=== PATIENT | female | born 1950 | race Caucasian/White ===

== ENCOUNTER 2017-10-05 07:56 | Day surgery (SDC) | payer MEDICARE, BC ==
[~2017-10-05 07:56] MED LIST: RINGER'S SOLUTION,LACTATED 1,000 ML IV PRN
[2017-10-05] MEDS ORDERED: RINGER'S SOLUTION,LACTATED 1,000 ML IV ONE (08:42)
[2017-10-05] MEDS ORDERED: RINGER'S SOLUTION,LACTATED 1,000 ML IV PRN (09:42)
[2017-10-05 10:52] VITALS: BP 124/61
--- NOTE | 2017-10-05 15:09 | OR ---
Operative Report - Dictated Report Narrative: OPERATIVE REPORT DATE OF OPERATION: 10/05/2017 PREOPERATIVE DIAGNOSIS: No recent dedicated colon studies POSTOPERATIVE DIAGNOSIS: Diverticulosis OPERATION: Colonoscopy SURGEON: Nathalie Ragsdale MD ANESTHESIA: CAMILLE Law CRNA INDICATIONS FOR PROCEDURE: The patient is a 67-year-old female referred by A Thad HORVATH. The patient had a normal colonoscopy in 2006. She has had increasing constipation FINDINGS: Diverticulosis NARRATIVE OF PROCEDURE: The patient was identified in the holding area, and prior to the administration of anesthetic, a multidisciplinary timeout was observed. With the patient in the left lateral position and after the administration of intravenous sedation, the perineum was inspected. There was no evidence of pilonidal disease or skin breakdown. The external appearance of the anus was normal. Sphincter tone was good. The flexible fiberoptic colonoscope was inserted into the rectum which was insufflated with air. The rectal mucosa and submucosal vascular pattern appeared normal, the prep was seen to be complete. The scope was advanced through the sigmoid colon, up the descending colon, and around the splenic flexure where the triangular haustral architecture of the transverse colon was seen. The scope was advanced across the transverse colon, around the hepatic flexure to the cecum, where the confluence of tenia and the ileocecal valve were identified. The mucosa at this level appeared normal. The scope was then slowly withdrawn in a circular fashion so that all aspects of colonic mucosa were inspected. The colon was capacious and character and slightly redundant in course. The haustral architecture appeared well preserved throughout with no evidence of external compression. The mucosa and submucosal vascular pattern appeared normal, specifically there was no gross evidence to suggest colitis or inflammatory bowel disease and no AV malformations were seen. There were scattered small non -impacted noninflamed diverticular openings in the sigmoid colon. No polyps were encountered. The scope was gradually withdrawn to the level of the rectum. As much insufflated air as possible was removed. The scope was withdrawn from the patient and the procedure terminated. The patient tolerated the anesthetic and procedure well without complication and was transferred back to the ambulatory surgery area awake and in stable condition. The patient remained stable throughout a period of postoperative observation. She denied abdominal discomfort, was able to tolerate by mouth intake, and was up without assistance. I shared the operative findings with the patient and she was given copies of the photographs which appear in the medical record. She was discharged home with instructions not to engage in hazardous activity today , but may resume normal activity tomorrow, and advance diet as tolerated. She is to continue those medications as listed in the history and physical exam. RECOMMENDATION: Colon surveillance in 10 years depending upon findings and symptoms Reviewed and electronically signed
== END 2017-10-05 07:57 | disposition home or self-care (01) ==
LOC: AMB 07:56
PROVIDERS: ATTEND Surgery
PROC: 0DJD8ZZ Inspection of Lower Intestinal Tract, Via Natural or Artificial Opening Endoscopic (ICD-10-PCS; principal; 2017-10-05 09:00)
DX: Z12.11 Encounter for screening for malignant neoplasm of colon (principal); K57.30 Diverticulosis of large intestine without perforation or abscess without bleeding; E78.5 Hyperlipidemia, unspecified; G20 Parkinson's disease; F41.9 Anxiety disorder, unspecified; Z68.21 Body mass index [BMI] 21.0-21.9, adult

== ENCOUNTER 2018-03-09 16:16 | Inpatient (IN) ==
[2018-03-09] MEDS ORDERED: MORPHINE SULFATE 2 MG/ML DISP.SYRIN IV ONE ×4 (16:58→19:24)
[2018-03-09] MEDS ORDERED: MORPHINE SULFATE 10 MG/ML SYRG ONE (16:59)
[2018-03-09 18:01] LABS: Hematocrit 40.9 % (37.0-47.0); Hemoglobin 13.3 gm/dL (12.5-16.0); Mean Cell Volume 92.1 fl (78-100); Mean Corpuscular Hgb Conc 32.5 g/dl (32-36); Mean Platelet Volume 10.3 fl (6.0-9.5); Neutrophil # 3.5 K/mm3 (1.3-6.0); Neutrophil % 76.9 % (42-75.0); Platelet Count 191 K/mm3 (150-450); Red Blood Count 4.44 M/mm3 (4.2-5.4); White Blood Count 4.5 K/mm3 (4.0-10.5)
[2018-03-09 18:11] LABS: Prothrombin Time (Patient) 9.8 Seconds (9.0-11.0)
[2018-03-09] MEDS ORDERED: LORazepam 2 MG/ML DISP.SYRIN IV ONE (18:12)
[2018-03-09] MEDS ORDERED: LORazepam 2 MG/ML DISP.SYRIN ONE (18:14)
[2018-03-09 18:16] LABS: INR 0.98 INR (0.90-1.10); Partial Thrombolplastin Time 23.6 Seconds (24-32)
[2018-03-09 18:20] LABS: Albumin * 3.6 gm/dl (3.4-5.0); Anion Gap 11.7 mmol/L (6.8-13.8); BUN/Creatinine Ratio 14.1 (9.0-21.6); Bilirubin, Total 0.3 mg/dL (0.0-1.1); Ca. Corrected For Albumin 8.6 mg/dL (8.4-10.2); Calcium * 8.6 mg/dL (7.9-10.9); Potassium 4.3 mmol/L (3.4-4.6); Total Protein 6.6 gm/dL (6.2-8.2)
[2018-03-09 18:24] LABS: Carbon Dioxide 28.6 mmol/L (24-32.6)
--- NOTE | 2018-03-09 19:00 | ERNOTE ---
Lower Extremity HPI - Narrative Date of Service: 03/09/18 - General Lower Extremities Pain: hip: left Time Seen by Provider: 03/09/18 16:29 Source: patient Exam Limitations: no limitations - Immun/Allergies/Home Medications Immunizations: IMMUNIZATION HX Immunizations Up to Date Yes History of Influenza Vaccine Yes Hx Pneumococcal Vaccination No Allergies/Adverse Reactions: Allergies Allergy/AdvReac Type Severity Reaction Status Date / Time Sulfa (Sulfonamide Allergy Severe THROAT Verified 03/09/18 17:39 Antibiotics) CLOSED UP adhesive tape AdvReac Mild RASH Verified 03/09/18 17:39 codeine AdvReac Mild Vomiting Verified 03/09/18 17:39 erythromycin base AdvReac Mild RASH Verified 03/09/18 17:39 [Erythromycin Base] oxybutynin [From Ditropan] AdvReac Mild Headache Verified 03/09/18 17:39 Penicillins AdvReac Mild RASH Verified 03/09/18 17:39 Home Medications: HOME MEDICATIONS Amantadine HCl [Amantadine (Symmetrel)] 100 mg PO BID 09/17/17 [Last Taken Unknown] Cholecalciferol (Vitamin D3) [Vitamin D] 2,000 unit PO DAILY 09/17/17 [Last Taken Unknown] Ibuprofen [Motrin] 800 mg PO Q6H PRN 09/17/17 [Last Taken Unknown] Rasagiline Mesylate [Azilect] 0.5 mg PO DAILY 09/17/17 [Last Taken Unknown] Rizatriptan Benzoate [Maxalt Radio Artist] 10 mg PO DAILY PRN MDD 30 MG 09/17/17 [Last Taken Unknown] Ubidecarenone [Co Q-10] 200 mg PO DAILY 09/17/17 [Last Taken Unknown] Pramipexole Di-HCl [Mirapex] 0.125 mg PO TID 03/09/18 [Last Taken Unknown] - History of Present Illness Narrative: patient presents tot ED via EMS with severe left hip pain after a fall. She relates that she tried to get up and tripped over her own foot falling onto her left side. Immediate and sevre pain left hip. Also hit her head, mild neck pain. no CP or SOB, no acute abdominal pain. She denies other acute focal N/T/ W. EMS gave the patient fentanyl and the this has helped her left hip somewhat. Pain severe initially. No other UE or LE pain. Occurred: just prior to arrival Location of Incident: home Method of Injury: Reports: fell Reason for Fall: Reports: tripped Loss of Consciousness: Reports: no loss of consciousness Modifying Factors - (Improves): Reports: rest Modifying Factors - (Worsens): Reports: movement Associated Symptoms: Reports: unable to bear weight Other Injuries: Reports: head Subsequent Symptoms: Denies: sensory loss, numbness, motor loss Prior Treament: Denies: recently seen Review of Systems - Review of Systems Constitutional: Absent: fever EYE: Present: no symptoms reported ENT: Absent: sore throat Respiratory: Absent: shortness of breath Cardiology: Absent: chest pain Gastrointestinal/Abdominal: Absent: abdominal pain Genitourinary: Absent: dysuria Musculoskeletal: Present: See HPI Skin: Present: other - no laceration Neurological: Present: See HPI All Other Systems: All systems neg except as marked - Patient's Past Medical History Patient History - Medical: Anemia, Anxiety, Other Patient History - Cardiac/Respiratory: Hyperlipidemia, Other Patient History - Cancer: No Hx of Cancer Patient History - Surgical Procedures: Cataracts, Colonoscopy, EGD, Hysterectomy , T & A, Other Patient History - Other: None LMP (females 10-50): Menopausal - Family History Father Family History - Medical: , No pertinent hx Family History - Cardiac/Respiratory: Myocardial Infarction Family History - Cancer: No pertinent family hx Mother Family History - Medical: , No pertinent hx Family History - Cardiac/Respiratory: Myocardial Infarction Family History - Cancer: No pertinent family hx - Social History Living Situations: home Abuse History: No History of abuse Psych History: Hx of Anxiety Smoking Status: Never smoker Have you smoked in the past 12 months: No Do you dip or chew tobacco: No Alcohol Use: none Drug Use: none - Immunizations Immunizations Up to Date: Yes Hx Pneumococcal Vaccination: No History of Influenza Vaccine: Yes Physical Exam - Physical Exam General Appearance: Present: alert, no apparent distress Head Exam: Present: normal inspection, no evidence of injury Eye Exam: Normal inspection: bilateral, PERRL: bilateral Ears, Nose, Throat: Present: normal ENT inspection Neck: Present: normal inspection, other - there is paraspinsal muscular tendenress, no localizing point vertebral tenderness. nothing to suggest ligamentous injuty, cleared after CT. Respiratory: Present: no respiratory distress, normal breath sounds, no accessory muscle use, lungs clear Cardiovascular/Chest: Present: regular rate, rhythm, normal peripheral pulses, other - dorsalis pedis pulses present Gastrointestinal/Abdominal: Present: normal bowel sounds, nontender, nondistended, soft Back Exam: Present: no vertebral tenderness Extremity Exam: Present: other - severe pain with movement of left hip. No other point bone tendnerss. No point tendenress of the facial bones. EOMI. Neurological Exam: Present: alert, no motor/sensory deficits, other - pain limits exam but no clear acute focal motor or LT sensory deficits. Skin Exam: Present: normal color, warm/dry ED Progress - Results and Orders Patient's Lab Results:: I have reviewed the patient's lab results. - Vital Signs Patient's Vital Signs:: I have reviewed the patient's vital signs. Vital Signs: Vital Signs 03/09/18 03/09/18 03/09/18 16:20 16:37 17:07 Temperature 36.9 C Pulse Rate 81 80 79 Respiratory 18 14 20 Rate Blood Pressure 128/69 113/71 111/69 O2 Sat by Pulse 95 96 98 Oximetry - EKG EKG: NSR EKG read: Interp. by me EKG Comments: NSR rate rate 79. Non-specific ST/T wave changes. no clear STEMI. - X-Ray X-Ray #1 X-Ray: chest Interpretation: Interp. by me X-ray Comments: No acute process by my interp. X-Ray #2 X-Ray: femur Interpretation: Interp. by me X-ray Comments: Hip fracture X-Ray #3 X-Ray: hip Interpretation: Interp. by me X-ray Comments: Left hip fracture - CT/Ultrasound CT/Ultrasound Narrative: I reviewed CT of head and cervical spine official radiology report - Progress/Reassessment Chief Complaint: Hip Pain/Injury Progress Note-Subjective: 03/09/18 18:[address] Diaz who will consult and with Dr Tse who will admit. Pt understands need for admission. Departure Clinical Impression: Fall, Head injury, Musculoskeletal pain, Hip fracture - Departure Disposition: Still a patient Condition: Stable
--- NOTE | 2018-03-09 21:29 | HP ---
Chief Complaint - Chief Complaint Date of Service: 03/09/18 Time of Service: 21:29 Chief Complaint: S/P fall left hip pain History of Present Illness: 67 years old female adm to the hospital with reports of left hip pain s/p fall while at home. She is a poor historian and information obtained from ER notes and previous clinic records. Pt stated she was standing at the kitchen counter holding on the counter. She attempted to walk but her feet felt stuck to the floor. She tried to shuffled them loosing her balance and fell on the left side hitting her head and left hip. She tried to get up with help of her but the pain was too much so he called EMS. EMS got her off the floor and brought her to the ER. pt denies dizziness, chest pain, shortness of breath, palpitation before and after incident. In ER X-ray Femur left hip fracture. CT head:No acute intracranial process. ERP spoke with Dr mills who accept pt and potential surgery tomorrow. RCRI 0.4% risk for major cardiac event, pt is an appropriate candidate for planned procedure. PMH significant for parkisnon disease, Wmjq-Xezovbop-Zpkiwq syndrome (VKH) constipation and anemia.Plan of care discussed with pt she verbalized understanding and agrees. - Patient's Past Medical History Patient History - Medical: Anemia, Anxiety, Migraines - parkinson disease, tremors, endometriosis, ytqb-uqosyvin-dusegkt-syndrome, Osteoarthritis, Other - diverticulosis, parkinson disease, ntjj-wivtszsh-Jwdjgp-symdrome, endometriosis , joint pain and tremors. Patient History - Cardiac/Respiratory: Deep Vein Thrombosis, Hyperlipidemia, Other Patient History - Cancer: No Hx of Cancer Patient History - Surgical Procedures: Cataracts, Colonoscopy - 2017, EGD, Hysterectomy, T & A, Other Patient History - Other: None LMP (females 10-50): Menopausal - Family History Father Family History - Medical: , No pertinent hx Family History - Cardiac/Respiratory: Myocardial Infarction Family History - Cancer: No pertinent family hx Mother Family History - Medical: , No pertinent hx Family History - Cardiac/Respiratory: Myocardial Infarction Family History - Cancer: Stomach - Social History Living Situations: spouse Abuse History: No History of abuse Psych History: Hx of Anxiety Smoking Status: Never smoker Have you smoked in the past 12 months: No Do you dip or chew tobacco: No Alcohol Use: none Drug Use: none - Immunizations Immunizations Up to Date: Yes Hx Pneumococcal Vaccination: No History of Influenza Vaccine: Yes Review Of Systems (GEN) - Review of Systems Generalized/Overall Review: Present: Weakness EENTM: Present: No Symptoms Reported Respiratory: Present: No Symptoms Reported Cardiac: Present: No Symptoms Reported Abdominal: Present: No Symptoms Reported Genitourinary: Present: No Symptoms Reported Musculoskeletal: Present: Other - muscle weakness and stiffness Neurological: Present: Anxiety, Parasthesia, Tingling, Tremors, Weakness, Pre- existing Deficit Skin: Present: No Symptoms Reported Endocrine: Present: No Symptoms Reported Immunizations: IMMUNIZATION HX Immunizations Up to Date Yes History of Influenza Vaccine Yes Hx Pneumococcal Vaccination No Allergies/Adverse Reactions: Allergies Allergy/AdvReac Type Severity Reaction Status Date / Time Sulfa (Sulfonamide Allergy Severe THROAT Verified 03/09/18 17:39 Antibiotics) CLOSED UP adhesive tape AdvReac Mild RASH Verified 03/09/18 17:39 codeine AdvReac Mild Vomiting Verified 03/09/18 17:39 erythromycin base AdvReac Mild RASH Verified 03/09/18 17:39 [Erythromycin Base] oxybutynin [From Ditropan] AdvReac Mild Headache Verified 03/09/18 17:39 Penicillins AdvReac Mild RASH Verified 03/09/18 17:39 Home Medications: HOME MEDICATIONS Amantadine HCl [Amantadine (Symmetrel)] 100 mg PO BID 09/17/17 [Last Taken 03/09 06:30] Cholecalciferol (Vitamin D3) [Vitamin D] 2,000 unit PO DAILY 09/17/17 [Last Taken 03/09/18 06:30] Ibuprofen [Motrin] 800 mg PO Q6H PRN 09/17/17 [Last Taken 03/07/18] Rasagiline Mesylate [Azilect] 0.5 mg PO DAILY 09/17/17 [Last Taken 03/09/18 06: 30] Rizatriptan Benzoate [Maxalt Unit Control Clerk] 10 mg PO DAILY PRN MDD 30 MG 09/17/17 [Last Taken Unknown] Ubidecarenone [Co Q-10] 200 mg PO DAILY 09/17/17 [Last Taken 03/09/18 06:30] Pramipexole Di-HCl [Mirapex] 0.125 mg PO TID 03/09/18 [Last Taken 03/09/18 06:30 ] Exam - Exam Vital Signs: Vital Signs - Last Taken Temp 36.3 C L 03/09/18 19:42 Pulse 74 03/09/18 19:42 Resp 16 03/09/18 19:42 BP 140/75 03/09/18 19:42 Pulse Ox 100 03/09/18 19:42 Constitutional: Present: Alert, Oriented x3, Cooperative, No distress, Middle aged, Thin and frail, Looks Older than stated age ENT Exam: Present: hard of hearing Eye Exam: right eye: other - VKH syndrome ( rentianl detatchement) Neck: Present: non-tender, full range of motion Back Exam: Present: normal inspection, no CVA tenderness Breasts: Present: Exam deferred Respiratory: Present: chest non-tender, lungs clear, normal breath sounds, no respiratory distress Cardiovascular/Chest: Present: normal peripheral pulses, regular rate, rhythm, no chest tenderness, no edema, no gallop Peripheral Pulses: dorsalis-pedis (R): 3+, dorsalis-pedis (L): 3+ Abdomen: Present: Normal bowel sounds, soft, nontender, nondistended /Rectal: Present: Exam deferred, External genitalia normal Extremity: Present: normal capillary refill, lower extremity edema, other - left leg decreased range of motion Skin Exam: Present: normal color, warm/dry, no cyanosis Lymphatic: Present: no adenopathy Neurologic: Present: normal mood/affect, oriented x 3 Appearance: Present: appropriate appearance Eye contact: Present: cooperative, good eye contact Thoughts: Present: normal thought pattern, no apparent hallucination Diagnostic Studies: Laboratory Results WBC 4.5 K/mm3 (4.0-10.5) 03/09/18 17:58 RBC 4.44 M/mm3 (4.2-5.4) 03/09/18 17:58 Hgb 13.3 gm/dL (12.5-16.0) 03/09/18 17:58 Hct 40.9 % (37.0-47.0) 03/09/18 17:58 MCV 92.1 fl (78-100) 03/09/18 17:58 MCH 30.0 pg (27-31) 03/09/18 17:58 MCHC 32.5 g/dl (32-36) 03/09/18 17:58 RDW 13.0 % (11.5-14.0) 03/09/18 17:58 Plt Count 191 K/mm3 (150-450) 03/09/18 17:58 MPV 10.3 fl (6.0-9.5) H 03/09/18 17:58 Immature Gran % (Auto) 0.70 % (0.001-0.429) H 03/09/18 17:58 Immature Gran # (Auto) 0.03 K/mm3 (0.000-0.0310) 03/09/18 17:58 Neutrophils % 76.9 % (42-75.0) H 03/09/18 17:58 Lymphocytes % 14.0 % (20-51) L 03/09/18 17:58 Monocytes % 6.4 % (0.0-9) 03/09/18 17:58 Eosinophils % 1.3 % (0.0-3.0) 03/09/18 17:58 Basophils % 0.7 % (0.0-1.0) 03/09/18 17:58 Nucleated RBC % 0.0 k/mm3 (0-1) 03/09/18 17:58 Neutrophils # 3.5 K/mm3 (1.3-6.0) 03/09/18 17:58 Lymphocytes # 0.63 k/mm3 (1.5-3.5) L 03/09/18 17:58 Monocytes # 0.3 k/mm3 (0.0-1.0) 03/09/18 17:58 Eosinophils # 0.1 k/mm3 (0.0-0.7) 03/09/18 17:58 Absolute Basophils 0.0 k/mm3 (0.0-0.1) 03/09/18 17:58 PT 9.8 Seconds (9.0-11.0) 03/09/18 17:58 INR (Anticoag Therapy) 0.98 INR (0.90-1.10) 03/09/18 17:58 PTT ([place]) 23.6 Seconds (24-32) L 03/09/18 17:58 Sodium 138 mmol/L (132-142) 03/09/18 17:58 Plasma Sodium 138 mmol/L (130-142) 03/09/18 17:58 Potassium 4.3 mmol/L (3.4-4.6) 03/09/18 17:58 Chloride 103 mmol/L (97-106) 03/09/18 17:58 Carbon Dioxide 28.6 mmol/L (24-32.6) 03/09/18 17:58 Anion Gap 11.7 mmol/L (6.8-13.8) 03/09/18 17:58 BUN 14 mg/dL (3-23) 03/09/18 17:58 Creatinine 0.99 mg/dL (0.4-1.4) 03/09/18 17:58 Est GFR (Non-Af Amer) 60 mL/min (60-130) 03/09/18 17:58 BUN/Creatinine Ratio 14.1 (9.0-21.6) 03/09/18 17:58 Random Glucose 128 mg/dL (70-110) H 03/09/18 17:58 Calcium 8.6 mg/dL (7.9-10.9) 03/09/18 17:58 Calcium Adj for Albumin 8.6 mg/dL (8.4-10.2) 03/09/18 17:58 Total Bilirubin 0.3 mg/dL (0.0-1.1) 03/09/18 17:58 AST 17 U/L (0-48) 03/09/18 17:58 ALT 34 U/L (19-67) 03/09/18 17:58 Alkaline Phosphatase 92 U/L (50-170) 03/09/18 17:58 Troponin I Less than 0.017 ng/ml (0.00-0.10) 03/09/18 Unknown Total Protein 6.6 gm/dL (6.2-8.2) 03/09/18 17:58 Albumin 3.6 gm/dl (3.4-5.0) 03/09/18 17:58 X_Ray left femur: Acute midly displaced and impacted fracture of the left subcapital femoral neck. There is no joint dislocation. Degenerative changes of the pubis symphysis. Assessment/Plan - Narrative Narrative: Left hip fracture: secondary to mechanical fall pt stated she want using her [place] at the time and lost her balance and fell. X-Ray left femur: Acute mildly displaced and impacted fracture of the left subcapital femoral neck. There is no joint dislocation. Degenerative changes of the pubis symphysis. Morphine for pain control Keep NPO overnight and IVF at midnight Appropriate for plan procedure, she will need PT/OT post-op DVT: SCD and ortho for further DVT post-op management Code status: Water Quality Tester 40 minutes and case discussed with Dr miller. - Assessment/Plan (1) Parkinson disease Problem: Chronic (2) Hip fracture Problem: Acute Qualifiers: Encounter type: initial encounter
[2018-03-09] MEDS ORDERED: NORMAL SALINE 1,000 ML IV PRN (21:49)
[2018-03-09] MEDS ORDERED: MORPHINE SULFATE 2 MG/ML DISP.SYRIN IV PRN (21:51)
[2018-03-09] MEDS ORDERED: MAXALT MLT 10 MG PO PRN (22:11)
[2018-03-09] MEDS: AMANTADINE HCL 100 MG CAPSULE PO SCH (22:40)
[2018-03-09] MEDS: PRAMIPEXOLE DI-HCL 0.5 MG TABLET PO SCH (22:41)
[2018-03-10] MEDS: MORPHINE SULFATE 2 MG/ML DISP.SYRIN IV PRN ×3 (03:35→11:26)
--- NOTE | 2018-03-10 07:25 | PN ---
Subjective - Date and Time Seen Date: 03/10/18 Time: 07:17 Subjective Narrative: Patient's c/o is hip pain. I reviewed Maria Esther's H and P and agree the narrative and plan. She may proceed with anticipated orthopedic surgery. Objective - Review of Systems Generalized/Overall Review: Denies: Chills, Fever Respiratory: Denies: Cough, Shortness of Breath Cardiac: Denies: Chest Pain, Palpitations Abdominal: Denies: Nausea, Vomiting Genitourinary Symptoms: Denies: Urgency, Frequency Musculoskeletal Complaints: Reports: Joint Pain - Vitals Vitals: Last Vital Signs Temp 36.6 C 03/10/18 01:59 Pulse 85 03/10/18 01:59 Resp 16 03/10/18 01:59 BP 140/72 03/10/18 01:59 Pulse Ox 94 03/10/18 01:59 - Exam Constitutional: Present: Alert, Oriented x3, Cooperative ENT Exam: Present: hearing grossly normal Neck: Present: supple Respiratory: Present: decreased breath sounds, No rales, No wheezing Cardiovascular/Chest: Present: regular rate, rhythm, no JVD, no murmur Abdomen: Present: Normal bowel sounds, soft, nontender, nondistended Extremity: Present: no calf tenderness, leg pain Cauti Physician Documentation - Urinary Catheter Management Urethral ([place]) Date of Insertion: 03/10/18 Time of Insertion: 01:00 Assessment/Plan - Problems/Diagnosis (1) Fall Problem: Acute Narrative: likely due to parkinson's disease. she was in the kitchen and she turned she felt her leg was stuck to the floor and fell down. (2) Head injury Problem: Acute Narrative: no acute findings. (3) Hip fracture Problem: Acute Qualifiers: Encounter type: initial encounter Narrative: left subcapital hip fracture. for ORIF. Ortho on consult. (4) Parkinson disease Problem: Chronic Narrative: continue with home medications (5) Tmly-Kviusppf-Nsnope syndrome Problem: Chronic
[2018-03-10] MEDS ORDERED: ceFAZolin SODIUM 1 GM VIAL IV PRN (08:23)
--- NOTE | 2018-03-10 08:23 | CONS ---
- Reason for consultation (1) Subcapital fracture of left hip Date of Service: 03/10/18 HPI - General Date of Service: 03/10/18 Narrative: Mrs. Valencia is a 67-year-old female with Parkinson's who was at home when she tripped falling injuring her left hip. She is brought to the emergency department evaluated and was found to be stable other than a displaced left subcapital femoral neck fracture. She reports she normally walks with a cane. She lives with her and family. She runs her own errands. She denies any prior hip pain. She denies any other areas of pain. She does report that she has a noted tremor. She denies any history of recurrent infections or blood clots. Source: patient Exam Limitations: no limitations - History of Present Illness Timing/Duration: 24 hours Severity: moderate Modifying Factors - (Worsens): Reports: movement Modifying Factors - (Improves): Reports: immobilization, medication Associated Symptoms: denies symptoms Allergies/Adverse Reactions: Allergies Sulfa (Sulfonamide Antibiotics) Allergy (Severe, Verified 03/09/18 17:39) THROAT CLOSED UP adhesive tape Adverse Reaction (Mild, Verified 03/09/18 17:39) RASH codeine Adverse Reaction (Mild, Verified 03/09/18 17:39) Vomiting erythromycin base [Erythromycin Base] Adverse Reaction (Mild, Verified 03/09/18 17:39) RASH oxybutynin [From Ditropan] Adverse Reaction (Mild, Verified 03/09/18 17:39) Headache Penicillins Adverse Reaction (Mild, Verified 03/09/18 17:39) RASH Home Medications: Home Medications Medication Instructions Recorded Last Taken Amantadine HCl [Amantadine 100 mg PO BID 09/17/17 03/09/18 06:30 (Symmetrel)] Cholecalciferol (Vitamin D3) 2,000 unit PO DAILY 09/17/17 03/09/18 06:30 [Vitamin D] Ibuprofen [Motrin] 800 mg PO Q6H PRN 09/17/17 03/07/18 Rasagiline Mesylate [Azilect] 0.5 mg PO DAILY 09/17/17 03/09/18 06:30 Rizatriptan Benzoate [Maxalt Game Artist] 10 mg PO DAILY PRN MDD 30 MG 09/17/17 Unknown Ubidecarenone [Co Q-10] 200 mg PO DAILY 09/17/17 03/09/18 06:30 Pramipexole Di-HCl [Mirapex] 0.125 mg PO TID 03/09/18 03/09/18 06:30 - Patient's Past Medical History Patient History - Medical: Anemia, Anxiety, Migraines - parkinson disease, tremors, endometriosis, aslt-twbxnwpg-yfvdacx-syndrome, Osteoarthritis, Other - diverticulosis, parkinson disease, kwmb-uncuvbfn-Cssjwp-symdrome, endometriosis , joint pain and tremors. Patient History - Cardiac/Respiratory: Deep Vein Thrombosis, Hyperlipidemia, Other Patient History - Cancer: No Hx of Cancer Patient History - Surgical Procedures: Cataracts, Colonoscopy - 2017, EGD, Hysterectomy, T & A, Other Patient History - Other: None LMP (females 10-50): Menopausal - Family History Father Family History - Medical: , No pertinent hx Family History - Cardiac/Respiratory: Myocardial Infarction Family History - Cancer: No pertinent family hx Mother Family History - Medical: , No pertinent hx Family History - Cardiac/Respiratory: Myocardial Infarction Family History - Cancer: Stomach - Social History Living Situations: spouse Abuse History: No History of abuse Psych History: Hx of Anxiety Smoking Status: Never smoker Have you smoked in the past 12 months: No Do you dip or chew tobacco: No Alcohol Use: none Drug Use: none - Immunizations Immunizations Up to Date: Yes Hx Pneumococcal Vaccination: No History of Influenza Vaccine: Yes Procedures AFTER-CATAR DISCISSION (07/12/12) APPLICATION OF SPLINT (10/17/08) CATARAC PHACOEMULS/ASPIR (04/05/02) CLOSED ENDOSCOPIC BIOPSY OF LARGE INTESTINE (04/08/07) CLOSURE SKIN & SUBCUTANEOUS NEC (05/29/99) ESOPHAGOGASTRODUODENOSCOPY [EGD] W/CLOSED BIOPSY (04/08/07) INSERT LENS AT CATAR EXT (04/05/02) INSPECTION OF LOWER INTESTINAL TRACT, ENDO (10/05/17) Medications - Medications Current Medications: Current Medications Amantadine HCl (Symmetrel) 100 mg PO BID JORGE Stop: 04/08/18 23:01 Last Admin: 03/09/18 22:40 Dose: 100 mg Morphine Sulfate (Morphine Sulfate) 2 mg IV Q4H PRN PRN Reason: Pain Stop: 04/08/18 21:52 Last Admin: 03/10/18 07:21 Dose: 2 mg Pramipexole Dihydrochloride (Mirapex) 0.125 mg PO TID JORGE Stop: 04/08/18 22:31 Last Admin: 03/09/18 22:41 Dose: Not Given Review of Systems - Review of Systems Narrative: Negative except for above Physical Examination - Exam Narrative: Left lower extremity: No lacerations, ecchymosis, or abrasions. Palpable dorsalis pedis pulse. Sensation is intact light touch. She can flex and extend her toes and ankle. She has pain with any knee or hip range of motion. She is sitting in a flexed hip position. Vital Signs: Vital Signs - Last Taken Temp 36.8 C 03/10/18 07:17 Pulse 70 03/10/18 07:17 Resp 18 03/10/18 07:17 BP 130/70 03/10/18 07:17 Pulse Ox 97 03/10/18 07:17 Constitutional: Present: Alert, Oriented x3 - Assessments/Findings (1) Subcapital fracture of left hip Diagnosis(s): Plan is for left hip hemiarthroplasty secondary to her Parkinson's disease today if medically stable. She will receive IV Ancef for antibiotic prophylaxis. She will need 10 days of Lovenox prophylaxis postoperatively. This will be followed by 6 weeks of aspirin. Consent will be obtained and she will continue be nothing by mouth. Problem: Acute Qualifiers: Encounter type: initial encounter Fracture type: closed Qualified Code(s) : S72.012A - Unspecified intracapsular fracture of left femur, initial encounter for closed fracture
[2018-03-10] MEDS: PRAMIPEXOLE DI-HCL 0.5 MG TABLET PO SCH ×3 (08:27→17:11)
[2018-03-10] MEDS: RASAGILINE MESYLATE 1 MG TABLET PO SCH (08:27)
[2018-03-10] MEDS: AMANTADINE HCL 100 MG CAPSULE PO SCH ×2 (08:27→21:22)
[2018-03-10] MEDS: Co Q-10 200 MG PO SCH (08:28)
[2018-03-10] MEDS: CHOLECALCIFEROL 1,000 UNIT CAPSULE PO SCH (08:28)
[2018-03-10] MEDS ORDERED: RINGER'S SOLUTION,LACTATED 1,000 ML IV ONE ×2 (14:49)
--- NOTE | 2018-03-10 15:27 | POSTOP NO ---
Date of Surgery: 03/10/18 Patient Tolerated the Procedure: Well Post Operative Diagnosis/Procedures: Php Website Developer: Brodie Hernández PA-C Post-operative Diagnosis: Displaced left femoral neck fracture Finding: Above Procedure: Left hip hemiarthroplasty Estimated Blood Loss: 200 mL Specimens: Bone for disposal
--- NOTE | 2018-03-10 15:30 | OR ---
Operative Report - Dictated Report Narrative: Date: 03/10/2018 Preoperative diagnosis: Closed left hip displaced femoral neck fracture. Postoperative diagnosis: Closed left hip displaced femoral neck fracture Procedure: Left hip venus-arthroplasty. Surgeon: Titi Diaz M.D. Rod Puller: Brodie Hernández PA-C Anesthesia: Spinal. Complications: None Specimens: Bone for disposal. Estimated blood loss: 200 milliliters. Retained implants: Depuy Branch size 3 standard porocoat femoral stem. Size 43 millimeter outside diameter self-centering bipolar head with +1.5 millimeter cobalt chromium 28 mm femoral head. Indications: Mrs. Valencia is a 67-year-old female who fell at home resulting in injury to her left hip. This patient was evaluated on the floor and found to have sustained a displaced femoral neck fracture. The risks and benefits were discussed with the patient as well as any power of embedded software manager or family . The patient wished to proceed with surgical treatment. The risks, benefits, and alternatives discussed were , blood clots, bleeding, infection, nerve/ tendon blood vessel/ injury, malposition of components, dislocation and/or instability of joint, intraoperative fracture, postoperative limited range of motion, persistent pain, failure of components, and need for additional procedures. Patient wished to proceed. Consent was obtained after answering all questions. Procedure: After marking the correct extremity on the floor, the patient was taken to the operating room. A timeout was performed. IV antibiotics consisting of Ancef were administered prior to the procedure. A spinal anesthetic was induced by anesthesia. A Estrella catheter was inserted if not are in place. The patient was then transitioned to a lateral position on a well- padded pegboard. An axillary roll was placed. The head was in neutral position. The non-operative down leg was well-padded with SCD and ASHLY hose in place. The arms were supported and padded to protect from any undue pressure on the bony prominences and nerves. Well-padded anterior and posterior pelvic and chest posts were secured in order to maintain a stable position of the pelvis. This was placed so that the pelvis was perpendicular to the floor. The body was in line with the pelvis. Once it was felt that we had protected all the bony prominences and the patient was well secured with a safety belt as well, the leg was pre-scrubbed with alcohol, prepped and draped in a standard sterile fashion. A standard anterior lateral hip incision was marked out over the greater trochanter. Ioban drapes were then placed. The skin incision was then made. Sharp dissection with a scalpel utilizing cautery for hemostasis was carried out down to the gluteus and iliotibial band fascia. This was split in line with the skin incision. The greater trochanter bursa was excised. The anterior and posterior margins of the abductor tendon were identified. The anterior 1/2-1/3 of the tendon was tagged and reflected off the greater trochanter leaving a sleeve of tendon for repair at the completion of the case. This exposed the underlying hip joint capsule. An inverted T-type capsulotomy was made extending this up to the brim of the acetabulum. We encountered a hematoma at this point confirming an acute fracture as well as noted displacement of the femoral neck fracture. Using Homans to assist with elevation of the soft tissues off the anterior, superior, and inferior aspects of the femoral neck, the hip was then placed in a figure 4 position for a femoral neck cleanup cut to be made. With the leg in an externally rotated and adducted position, the cutting flag was utilized in order to leonard for a standard femoral neck cut approximately a fingerbreadth above the level of the lesser trochanter. This was done while protecting the surrounding soft tissues with Homans. The femoral head was then removed and sized for guidance on the size of the bipolar head. It was noted that there was no significant loss of articular cartilage on both the femoral head and weightbearing portions of the acetabulum. We then returned the leg to the table and turned our attention to the acetabulum. While protecting the surrounding soft tissues, the labrum and remaining tissue in the fovea were excised using a scalpel and cautery. The acetabulum was then protected with a sponge while we returned our attention to the femur. With the leg in a figure 4 position utilizing Homans for soft tissue protection , a box cutting osteotome, followed by Carlitos awvanesa, followed by serial broaches were utilized in order to prepare the femur. It was found that a size 3 broach gave good axial and rotational stability. The proximal femur was visualized to ensure that there were no signs of fracture. A series of heads were trialed. It was found that a + 1.5 femoral head gave good overall stability. There is minimal longitudinal instability. Hip range of motion was able to reach full extension and external rotation to greater than 75 degrees prior to impingement along the posterior acetabulum. The hip was able to be flexed to greater than 90 degrees with internal rotation greater than 60 degrees prior to anterior impingement. The limb lengths were near equal based on comparison to the contralateral side . At this point was felt this was the appropriately sized femoral components as well as neck and femoral head. The trial implants were removed. The femoral stem was then impacted in place. The final femoral bipolar head was then impacted in the place. The joint was thoroughly irrigated ensuring that there is no retained materials. The hip was then reduced and seated completely. The capsule was repaired with a single interrupted #1 Vicryl. The abductor tendon was repaired to the greater trochanter utilizing #5 Ethibond through drill holes. This was oversewn with #1 Vicryl. The fascia was closed with interrupted #1 Vicryl. The wounds were thoroughly irrigated as we closed in layers. The deep and subcutaneous fat layers were closed with 0 Vicryl. The subcutaneous tissue was closed with a running 3-0 Vicryl and the skin with sophia. All sponge, needle, blade, and instrument counts were correct prior to closing the wounds. Sterile dressings consisting of Xeroform, 4 x 4's, ABD, and tape were applied. The patient was awoken and transferred to her hospital bed and then to the postanesthesia care unit in stable condition. Postoperative condition: The plan is to return to the medical/surgical inpatient floor postoperatively. Postoperatively 24 hours of IV antibiotics, pain control, physical therapy, occupational therapy, and medical comanagement will be utilized. Patient will be weightbearing as tolerated with anterior hip precautions. Postoperative films will be obtained in the recovery room.
[2018-03-10] MEDS ORDERED: MAGNESIUM HYDROXIDE 30 ML UDC PO PRN (15:31)
[2018-03-10] MEDS ORDERED: ACETAMINOPHEN 500 MG TABLET PO PRN (15:31)
[2018-03-10] MEDS ORDERED: MORPHINE SULFATE 2 MG/ML DISP.SYRIN IV PRN (15:31)
[2018-03-10] MEDS: DEXTROSE 5%-LACTATED RINGERS 1,000 ML IV PRN (16:12)
[2018-03-10] MEDS: KETOROLAC TROMETHAMINE 15 MG/ML VIAL IV SCH ×2 (17:09→22:13)
[2018-03-10] MEDS: ceFAZolin SODIUM 1 GM in DEXTROSE 5 % IN WATER 50 ML IV SCH ×4 (17:10→23:08)
[2018-03-10] MEDS: SENNOSIDES/DOCUSATE SODIUM 1 TAB TABLET PO SCH (21:22)
[2018-03-10] MEDS: HYDROcodone/ACETAMINOPHEN 1 EACH TABLET PO PRN (23:25)
[2018-03-11] MEDS: DEXTROSE 5%-LACTATED RINGERS 1,000 ML IV PRN ×2 (01:40→10:28)
[2018-03-11] MEDS: KETOROLAC TROMETHAMINE 15 MG/ML VIAL IV SCH ×4 (04:15→22:54)
[2018-03-11] MEDS: ceFAZolin SODIUM 1 GM in DEXTROSE 5 % IN WATER 50 ML IV SCH ×2 (05:33)
[2018-03-11 05:45] LABS: Hematocrit 38.9 % (37.0-47.0); Hemoglobin 12.3 gm/dL (12.5-16.0); Mean Cell Volume 92.6 fl (78-100); Mean Corpuscular Hemoglobin 29.3 pg (27-31); Mean Corpuscular Hgb Conc 31.6 g/dl (32-36); Mean Platelet Volume 10.5 fl (6.0-9.5); Platelet Count 131 K/mm3 (150-450); Red Cell Distribution Width 12.9 % (11.5-14.0)
[2018-03-11 05:53] LABS: Anion Gap 10.4 mmol/L (6.8-13.8); Calcium * 8.1 mg/dL (7.9-10.9); Carbon Dioxide 28.9 mmol/L (24-32.6); Estimated Creat Clear 55.8; Potassium 4.3 mmol/L (3.4-4.6)
--- NOTE | 2018-03-11 07:32 | PN ---
Subjective - Date and Time Seen Date: 03/11/18 Time: 07:28 Subjective Narrative: Eating breakfast. No complaints. Afebrile today. Tmax yesterday was 37.9. Awaiting PT/OT. Objective - Review of Systems Generalized/Overall Review: Denies: Chills, Fever Respiratory: Denies: Cough, Shortness of Breath Cardiac: Denies: Chest Pain, Palpitations Abdominal: Denies: Nausea, Vomiting Genitourinary Symptoms: Denies: Urgency, Frequency Musculoskeletal Complaints: Reports: Joint Pain - controlled - Vitals Vitals: Last Vital Signs Temp 36.5 C 03/11/18 03:54 Pulse 68 03/11/18 05:30 Resp 16 03/11/18 05:30 BP 97/62 03/11/18 05:30 Pulse Ox 100 03/11/18 05:30 - Abnormal Lab Findings Abnormal Lab Findings: Abnormal Lab Results 03/11/18 03/11/18 Range/Units 05:34 05:34 Hgb 12.3 L (12.5-16.0) gm/dL MCHC 31.6 L (32-36) g/dl Plt Count 131 L (150-450) K/mm3 MPV 10.5 H (6.0-9.5) fl Random Glucose 191 H D (70-110) mg/dL - Exam Constitutional: Present: Alert, Oriented x3, Cooperative ENT Exam: Present: hearing grossly normal Neck: Present: supple Respiratory: Present: decreased breath sounds, No rales, No wheezing Cardiovascular/Chest: Present: regular rate, rhythm, no JVD, no murmur Abdomen: Present: Normal bowel sounds, soft, nontender, nondistended Extremity: Present: no pedal edema, no calf tenderness Cauti Physician Documentation - Urinary Catheter Management Urethral (Estrella) Date of Insertion: 03/10/18 Time of Insertion: 01:00 Date of Removal: 03/11/18 Time of Removal: 06:45 Assessment/Plan - Problems/Diagnosis (1) Fall Problem: Acute Narrative: continue with PT/OT (2) Head injury Problem: Acute Qualifiers: Encounter type: subsequent encounter Qualified Code(s): S09.90XD - Unspecified injury of head, subsequent encounter Narrative: asymptomatic (3) Hip fracture Problem: Acute Qualifiers: Encounter type: initial encounter Narrative: s/p hemiarthorplasty. continue with PT/OT (4) Parkinson disease Problem: Chronic Narrative: continue with home medications. (5) Nekh-Adwruksm-Vslcgd syndrome Problem: Chronic
--- NOTE | 2018-03-11 08:14 | PN ---
Subjective - Date and Time Seen Date: 03/11/18 Time: 08:11 Subjective Narrative: Subjective: Reports nausea but she states that this is normal for her. Was able to to get to the chair with therapy. Pain is well-controlled. Voiding without any complications. Tolerating by mouth intake. Denies calf pain. Physical exam: Alert and oriented to person, place and time Left lower Extremity: Palpable dorsalis pedis pulse. Sensation grossly intact to light touch. Dressings clean and dry. Able to flex and extend ankle and toes. No excessive drainage. Calf and thigh are soft and nontender. Assessment: Postop day 1 status post left hip venus-arthroplasty. Plan: Continue with physical and occupational therapy weightbearing as tolerated anterior hip precautions. Continue with anticoagulation for a total of 10 days. 24 hours postoperative prophylactic antibiotics. Pain control with goal to rely on oral medications. Continue bowel regimen. Will need 6 weeks with walker or assitive device to protect joint while ambulating during the recovery process. Keep wound dry. Change with dry gauze and tape every 2-3 days Objective - Vitals Vitals: Last Vital Signs Temp 37 C 03/11/18 07:45 Pulse 72 03/11/18 07:45 Resp 18 03/11/18 07:45 BP 120/76 03/11/18 07:45 Pulse Ox 96 03/11/18 07:45 - Abnormal Lab Findings Abnormal Lab Findings: Abnormal Lab Results 03/11/18 03/11/18 Range/Units 05:34 05:34 Hgb 12.3 L (12.5-16.0) gm/dL MCHC 31.6 L (32-36) g/dl Plt Count 131 L (150-450) K/mm3 MPV 10.5 H (6.0-9.5) fl Random Glucose 191 H D (70-110) mg/dL Cauti Physician Documentation - Urinary Catheter Management Urethral (Estrella) Date of Insertion: 03/10/18 Time of Insertion: 01:00 Date of Removal: 03/11/18 Time of Removal: 06:45 Assessment/Plan - Problems/Diagnosis (1) Subcapital fracture of left hip Problem: Acute Qualifiers: Encounter type: subsequent encounter Fracture type: closed Fracture healing: with routine healing Qualified Code(s): S72.012D - Unspecified intracapsular fracture of left femur, subsequent encounter for closed fracture with routine healing
[2018-03-11] MEDS: CHOLECALCIFEROL 1,000 UNIT CAPSULE PO SCH (08:26)
[2018-03-11] MEDS: PRAMIPEXOLE DI-HCL 0.5 MG TABLET PO SCH ×3 (08:26→16:11)
[2018-03-11] MEDS: Co Q-10 200 MG PO SCH (08:27)
[2018-03-11] MEDS: AMANTADINE HCL 100 MG CAPSULE PO SCH ×2 (08:27→21:31)
[2018-03-11] MEDS: RASAGILINE MESYLATE 1 MG TABLET PO SCH (08:27)
[2018-03-11] MEDS: HYDROcodone/ACETAMINOPHEN 1 EACH TABLET PO PRN ×3 (08:38→21:31)
[2018-03-11] MEDS: MAG HYDROX/ALUMINUM HYD/SIMETH 30 ML UDC PO PRN (08:39)
[2018-03-11] MEDS ORDERED: ENOXAPARIN SODIUM 40 MG/0.4 ML SYRG SC SCH (09:00)
[2018-03-11] MEDS: ENOXAPARIN SODIUM 40 MG/0.4 ML SYRG SC SCH (13:53)
[2018-03-11] MEDS: SENNOSIDES/DOCUSATE SODIUM 1 TAB TABLET PO SCH (21:30)
[2018-03-12] MEDS: KETOROLAC TROMETHAMINE 15 MG/ML VIAL IV SCH ×2 (04:26→09:57)
[2018-03-12] MEDS: HYDROcodone/ACETAMINOPHEN 1 EACH TABLET PO PRN ×2 (07:29→13:32)
--- NOTE | 2018-03-12 07:44 | PN ---
Subjective - Date and Time Seen Date: 03/12/18 Time: 07:40 Subjective Narrative: Patient ambulated in hallway with walker. POD # 2. Afebrile. T max 37. Objective - Review of Systems Generalized/Overall Review: Denies: Chills, Fever Respiratory: Denies: Cough, Shortness of Breath Cardiac: Denies: Chest Pain, Palpitations Abdominal: Denies: Nausea, Vomiting Genitourinary Symptoms: Denies: Urgency, Frequency Musculoskeletal Complaints: Reports: Joint Pain - controlled - Vitals Vitals: Last Vital Signs Temp 36.3 C L 03/12/18 02:00 Pulse 83 03/12/18 02:00 Resp 18 03/12/18 02:00 BP 116/67 03/12/18 02:00 Pulse Ox 97 03/12/18 02:00 - Exam Constitutional: Present: Alert, Oriented x3, Cooperative ENT Exam: Present: hearing grossly normal Neck: Present: supple Respiratory: Present: decreased breath sounds, No rales, No wheezing Cardiovascular/Chest: Present: regular rate, rhythm, no JVD, no murmur Abdomen: Present: Normal bowel sounds, soft, nontender, nondistended Extremity: Present: no pedal edema, no calf tenderness Cauti Physician Documentation - Urinary Catheter Management Urethral (Estrella) Date of Insertion: 03/10/18 Time of Insertion: 01:00 Date of Removal: 03/11/18 Time of Removal: 06:45 Assessment/Plan - Problems/Diagnosis (1) Fall Problem: Acute Qualifiers: Encounter type: subsequent encounter Qualified Code(s): W19.XXXD - Unspecified fall, subsequent encounter (2) Head injury Problem: Acute Qualifiers: Encounter type: subsequent encounter Qualified Code(s): S09.90XD - Unspecified injury of head, subsequent encounter (3) Hip fracture Problem: Acute Qualifiers: Encounter type: initial encounter Narrative: s/p left hemiarthroplasty. POD # 2. continue with PT/OT. has great [place] at home. possible NH placement before going home. (4) Parkinson disease Problem: Chronic Narrative: continue with home medications. (5) Ztrv-Dwahybmd-Ceubgl syndrome Problem: Chronic
[2018-03-12] MEDS: PRAMIPEXOLE DI-HCL 0.5 MG TABLET PO SCH ×3 (09:46→17:38)
[2018-03-12] MEDS: RASAGILINE MESYLATE 1 MG TABLET PO SCH (09:46)
[2018-03-12] MEDS: AMANTADINE HCL 100 MG CAPSULE PO SCH ×2 (09:47→20:38)
[2018-03-12] MEDS: CHOLECALCIFEROL 1,000 UNIT CAPSULE PO SCH (09:48)
[2018-03-12] MEDS: Co Q-10 200 MG PO SCH (09:48)
--- NOTE | 2018-03-12 14:13 | PN ---
Subjective - Date and Time Seen Date: 03/12/18 Time: 14:12 Subjective Narrative: Subjective: Reports improved nausea. Was able to walk in the [place] with therapy. Pain is well-controlled. Voiding without any complications. Tolerating by mouth intake. Denies calf pain. Physical exam: Alert and oriented to person, place and time Left lower Extremity: Palpable dorsalis pedis pulse. Sensation grossly intact to light touch. Dressings clean and dry. Able to flex and extend ankle and toes. No excessive drainage. Calf and thigh are soft and nontender. Assessment: Postop day 2 status post left hip venus-arthroplasty. Plan: Continue with physical and occupational therapy weightbearing as tolerated anterior hip precautions. Continue with anticoagulation for a total of 10 days. Pain control with goal to rely on oral medications. Continue bowel regimen. Will need 6 weeks with walker or assitive device to protect joint while ambulating during the recovery process. Keep wound dry. Change with dry gauze and tape every 2-3 days Objective - Vitals Vitals: Last Vital Signs Temp 36.7 C 03/12/18 11:35 Pulse 75 03/12/18 11:35 Resp 18 03/12/18 11:35 BP 101/62 03/12/18 11:35 Pulse Ox 98 03/12/18 11:35 Cauti Physician Documentation - Urinary Catheter Management Urethral (Estrella) Date of Insertion: 03/10/18 Time of Insertion: 01:00 Date of Removal: 03/11/18 Time of Removal: 06:45 Assessment/Plan - Problems/Diagnosis (1) Subcapital fracture of left hip Problem: Acute Qualifiers: Encounter type: subsequent encounter Fracture type: closed Fracture healing: with routine healing Qualified Code(s): S72.012D - Unspecified intracapsular fracture of left femur, subsequent encounter for closed fracture with routine healing
[2018-03-12] MEDS: ENOXAPARIN SODIUM 40 MG/0.4 ML SYRG SC SCH (15:33)
[2018-03-12] MEDS: SENNOSIDES/DOCUSATE SODIUM 1 TAB TABLET PO SCH (20:38)
[2018-03-12] MEDS: MAG HYDROX/ALUMINUM HYD/SIMETH 30 ML UDC PO PRN (23:49)
[2018-03-13] MEDS: HYDROcodone/ACETAMINOPHEN 1 EACH TABLET PO PRN ×4 (04:03→23:00)
--- NOTE | 2018-03-13 06:27 | PN ---
Subjective - Date and Time Seen Date: 03/13/18 Time: 06:24 Subjective Narrative: patient seen today in bed AOX3 no acute distress and stated her left hip hurt only with movement. She denies calf pain, Shortness of breath , palpitation, cough or fever. She anticipating discharge to the [facility] on Thursday. Objective - Review of Systems Generalized/Overall Review: Reports: No Symptoms Reported Respiratory: Reports: No Symptoms Reported Cardiac: Reports: No Symptoms Reported Abdominal: Reports: No Symptoms Reported Genitourinary Symptoms: Reports: No Symptoms Reported Musculoskeletal Complaints: Reports: Joint Pain, Muscle Pain Neurological: Reports: No Symptoms Reported Skin: Reports: No Symptoms Reported - Vitals Vitals: Last Vital Signs Temp 37.0 C 03/13/18 03:00 Pulse 85 03/13/18 03:00 Resp 18 03/13/18 03:00 BP 134/71 03/13/18 03:00 Pulse Ox 99 03/13/18 03:00 - Exam Constitutional: Present: Alert, Oriented x3, Cooperative, Well developed, No distress, Middle aged ENT Exam: Present: hearing grossly normal, other - right eye pulpil dilated Neck: Present: non-tender, full range of motion Breasts: Present: Nontender Respiratory: Present: chest non-tender, lungs clear, normal breath sounds, no respiratory distress Cardiovascular/Chest: Present: normal peripheral pulses, regular rate, rhythm, no chest tenderness, no edema Abdomen: Present: Normal bowel sounds, soft, nontender, nondistended /Rectal: Present: Exam deferred Extremity: Present: normal inspection, no pedal edema, normal capillary refill, lower extremity edema - limited range of motion left hip Skin Exam: Present: normal color, warm/dry, no cyanosis Neurologic: Present: oriented x 3 Appearance: Present: appropriate appearance, appropriate insight Eye contact: Present: cooperative, good eye contact Thoughts: Present: normal thought pattern Cauti Physician Documentation - Urinary Catheter Management Urethral (Estrella) Date of Insertion: 03/10/18 Time of Insertion: 01:00 Date of Removal: 03/11/18 Time of Removal: 06:45 Assessment/Plan Plan Narrative: POD#3 Left hip venus-arthroplasty secondary to Closed left hip displaced femoral neck fracture SCIP antibiotic regimen completed. Continue with PT/OT evaluation and treatment Anticoagulation x 10days total Change dressing 2-3 days with dry gauze Continue with walker for 6 weeks during the post-op process. Anticipating discharge to [facility]. - Problems/Diagnosis (1) Parkinson disease Problem: Chronic (2) Hip fracture Problem: Acute Qualifiers: Encounter type: initial encounter
[2018-03-13] MEDS: AMANTADINE HCL 100 MG CAPSULE PO SCH ×2 (08:49→20:36)
[2018-03-13] MEDS: CHOLECALCIFEROL 1,000 UNIT CAPSULE PO SCH (08:49)
[2018-03-13] MEDS: PRAMIPEXOLE DI-HCL 0.5 MG TABLET PO SCH ×3 (08:49→16:57)
[2018-03-13] MEDS: RASAGILINE MESYLATE 1 MG TABLET PO SCH (08:49)
[2018-03-13] MEDS: Co Q-10 200 MG PO SCH (08:49)
[2018-03-13] MEDS: ENOXAPARIN SODIUM 40 MG/0.4 ML SYRG SC SCH (14:03)
[2018-03-13] MEDS: SENNOSIDES/DOCUSATE SODIUM 1 TAB TABLET PO SCH (20:36)
[2018-03-14] MEDS: HYDROcodone/ACETAMINOPHEN 1 EACH TABLET PO PRN ×3 (06:55→21:59)
--- NOTE | 2018-03-14 07:01 | PN ---
Subjective - Date and Time Seen Date: 03/14/18 Time: 07:00 Subjective Narrative: Patient was seen this morning feel well and report pain to surgical site with excessive movement.Denies fever, cough, calf pain or chest pain. Objective - Review of Systems Generalized/Overall Review: Reports: No Symptoms Reported EENTM: Reports: No Symptoms Reported Respiratory: Reports: No Symptoms Reported Cardiac: Reports: No Symptoms Reported Abdominal: Reports: No Symptoms Reported Genitourinary Symptoms: Reports: No Symptoms Reported Musculoskeletal Complaints: Reports: Joint Pain Neurological: Reports: No Symptoms Reported Skin: Reports: No Symptoms Reported - Vitals Vitals: Last Vital Signs Temp 36.5 C 03/14/18 02:49 Pulse 70 03/14/18 02:49 Resp 18 03/14/18 02:49 BP 112/61 03/14/18 02:49 Pulse Ox 97 03/14/18 02:49 - Exam Constitutional: Present: Alert, Oriented x3, Cooperative, No distress ENT Exam: Present: hard of hearing Neck: Present: non-tender, full range of motion Breasts: Present: Exam deferred Respiratory: Present: chest non-tender, lungs clear, normal breath sounds, no respiratory distress Cardiovascular/Chest: Present: normal peripheral pulses, regular rate, rhythm, no chest tenderness, no edema Abdomen: Present: Normal bowel sounds, soft, nontender, nondistended Extremity: Present: non-tender, no calf tenderness, lower extremity edema Skin Exam: Present: normal color, warm/dry, no cyanosis Neurologic: Present: normal mood/affect, oriented x 3 Appearance: Present: appropriate appearance, appropriate insight Cauti Physician Documentation - Urinary Catheter Management Urethral (Estrella) Date of Insertion: 03/10/18 Time of Insertion: 01:00 Date of Removal: 03/11/18 Time of Removal: 06:45 Assessment/Plan Plan Narrative: POD#4 Left hip venus-arthroplasty secondary to Closed left hip displaced femoral neck fracture SCIP antibiotic regimen completed. Continue with PT/OT evaluation and treatment Anticoagulation x 10days total Change dressing 2-3 days with dry gauze Continue with walker for 6 weeks during the post-op process. Anticipating discharge to [facility] on Thursday - Problems/Diagnosis (1) Parkinson disease Problem: Chronic (2) Hip fracture Problem: Acute Qualifiers: Encounter type: initial encounter
[2018-03-14] MEDS: AMANTADINE HCL 100 MG CAPSULE PO SCH ×2 (08:14→22:00)
[2018-03-14] MEDS: PRAMIPEXOLE DI-HCL 0.5 MG TABLET PO SCH ×3 (08:15→17:12)
[2018-03-14] MEDS: CHOLECALCIFEROL 1,000 UNIT CAPSULE PO SCH (08:15)
[2018-03-14] MEDS: Co Q-10 200 MG PO SCH (08:15)
[2018-03-14] MEDS: RASAGILINE MESYLATE 1 MG TABLET PO SCH (08:15)
[2018-03-14] MEDS: ENOXAPARIN SODIUM 40 MG/0.4 ML SYRG SC SCH (14:21)
[2018-03-14] MEDS: SENNOSIDES/DOCUSATE SODIUM 1 TAB TABLET PO SCH (22:00)
[2018-03-15] MEDS: RASAGILINE MESYLATE 1 MG TABLET PO SCH (08:34)
[2018-03-15] MEDS: PRAMIPEXOLE DI-HCL 0.5 MG TABLET PO SCH (08:34)
[2018-03-15] MEDS: CHOLECALCIFEROL 1,000 UNIT CAPSULE PO SCH (08:35)
[2018-03-15] MEDS: AMANTADINE HCL 100 MG CAPSULE PO SCH (08:36)
[2018-03-15] MEDS: Co Q-10 200 MG PO SCH (08:36)
--- NOTE | 2018-03-15 10:38 | DS ---
(1) Subcapital fracture of left hip Diagnosis(s): 03/09/2018. S/P LT hip hemiarthroplasty- 03/10/2018. Problem: Acute Qualifiers: Encounter type: subsequent encounter Fracture type: closed Fracture healing: with routine healing Qualified Code(s): S72.012D - Unspecified intracapsular fracture of left femur, subsequent encounter for closed fracture with routine healing (2) Fall at home Problem: Acute (3) Ycgw-Yhfimmkx-Uzxjyl syndrome Problem: Chronic (4) Parkinson disease Problem: Chronic Description of Stay: DATE OF ADMISSION: 03/09/18. DATE OF DISCHARGE: 03/15/18. DIAGNOSTICS: NONE. DISCHARGE SUMMARY: Deena Valencia is a 67-year-old [place] woman with a H/O HLD, Parkinson' s disease, Vogt Koyanagi Rosie syndrome, migraines who fell at home from a standing height and sustained a LT subcapital hip fracture. Patient underwent LT hemiarthroplasty on 03/10/[address] Diaz. Patient underwent OT and PT at the hospital and is doing well. She is on Lovenox 40 mg subcutaneous daily for 10 days followed by aspirin 325 mg 6 weeks postoperatively. Patient's pain is well controlled on hydrocodone/acetaminophen 5/325 2 tablets 3-4 times a day. Advised to have 3 servings of calcium in her diet in the form of yogurt, low- fat cheese/milk/spinach in addition to vitamin D3 2000 units daily with food. Patient is being discharged in a stable condition on 03/15/18 to [facility] for skilled therapy. She is to follow-up with Dr. Diaz and Dr. Davis as outpatient. Procedures Performed: see notes below List Procedures: Date: 03/10/2018 Preoperative diagnosis: Closed left hip displaced femoral neck fracture. Postoperative diagnosis: Closed left hip displaced femoral neck fracture Procedure: Left hip venus-arthroplasty. Surgeon: Titi Diaz M.D. Regional Transportation Manager: Brodie Hernández PA-C Anesthesia: Spinal. Complications: None Specimens: Bone for disposal. Estimated blood loss: 200 milliliters. Retained implants: Depuy [place] size 3 standard porocoat femoral stem. Size 43 millimeter outside diameter self-centering bipolar head with +1.5 millimeter cobalt chromium 28 mm femoral head. Indications: Mrs. Valencia is a 67-year-old female who fell at home resulting in injury to her left hip. This patient was evaluated on the floor and found to have sustained a displaced femoral neck fracture. The risks and benefits were discussed with the patient as well as any power of admitted attorneys or family . The patient wished to proceed with surgical treatment. The risks, benefits, and alternatives discussed were , blood clots, bleeding, infection, nerve/ tendon blood vessel/ injury, malposition of components, dislocation and/or instability of joint, intraoperative fracture, postoperative limited range of motion, persistent pain, failure of components, and need for additional procedures. Patient wished to proceed. Consent was obtained after answering all questions. Procedure: After marking the correct extremity on the floor, the patient was taken to the operating room. A timeout was performed. IV antibiotics consisting of Ancef were administered prior to the procedure. A spinal anesthetic was induced by anesthesia. A Estrella catheter was inserted if not are in place. The patient was then transitioned to a lateral position on a well- padded pegboard. An axillary roll was placed. The head was in neutral position. The non-operative down leg was well-padded with SCD and ASHLY hose in place. The arms were supported and padded to protect from any undue pressure on the bony prominences and nerves. Well-padded anterior and posterior pelvic and chest posts were secured in order to maintain a stable position of the pelvis. This was placed so that the pelvis was perpendicular to the floor. The body was in line with the pelvis. Once it was felt that we had protected all the bony prominences and the patient was well secured with a safety belt as well, the leg was pre-scrubbed with alcohol, prepped and draped in a standard sterile fashion. A standard anterior lateral hip incision was marked out over the greater trochanter. Ioban drapes were then placed. The skin incision was then made. Sharp dissection with a scalpel utilizing cautery for hemostasis was carried out down to the gluteus and iliotibial band fascia. This was split in line with the skin incision. The greater trochanter bursa was excised. The anterior and posterior margins of the abductor tendon were identified. The anterior 1/2-1/3 of the tendon was tagged and reflected off the greater trochanter leaving a sleeve of tendon for repair at the completion of the case. This exposed the underlying hip joint capsule. An inverted T-type capsulotomy was made extending this up to the brim of the acetabulum. We encountered a hematoma at this point confirming an acute fracture as well as noted displacement of the femoral neck fracture. Using Homans to assist with elevation of the soft tissues off the anterior, superior, and inferior aspects of the femoral neck, the hip was then placed in a figure 4 position for a femoral neck cleanup cut to be made. With the leg in an externally rotated and adducted position, the cutting flag was utilized in order to leonard for a standard femoral neck cut approximately a fingerbreadth above the level of the lesser trochanter. This was done while protecting the surrounding soft tissues with Homans. The femoral head was then removed and sized for guidance on the size of the bipolar head. It was noted that there was no significant loss of articular cartilage on both the femoral head and weightbearing portions of the acetabulum. We then returned the leg to the table and turned our attention to the acetabulum. While protecting the surrounding soft tissues, the labrum and remaining tissue in the fovea were excised using a scalpel and cautery. The acetabulum was then protected with a sponge while we returned our attention to the femur. With the leg in a figure 4 position utilizing Homans for soft tissue protection , a box cutting osteotome, followed by Carlitos awl, followed by serial broaches were utilized in order to prepare the femur. It was found that a size 3 broach gave good axial and rotational stability. The proximal femur was visualized to ensure that there were no signs of fracture. A series of heads were trialed. It was found that a + 1.5 femoral head gave good overall stability. There is minimal longitudinal instability. Hip range of motion was able to reach full extension and external rotation to greater than 75 degrees prior to impingement along the posterior acetabulum. The hip was able to be flexed to greater than 90 degrees with internal rotation greater than 60 degrees prior to anterior impingement. The limb lengths were near equal based on comparison to the contralateral side . At this point was felt this was the appropriately sized femoral components as well as neck and femoral head. The trial implants were removed. The femoral stem was then impacted in place. The final femoral bipolar head was then impacted in the place. The joint was thoroughly irrigated ensuring that there is no retained materials. The hip was then reduced and seated completely. The capsule was repaired with a single interrupted #1 Vicryl. The abductor tendon was repaired to the greater trochanter utilizing #5 Ethibond through drill holes. This was oversewn with #1 Vicryl. The fascia was closed with interrupted #1 Vicryl. The wounds were thoroughly irrigated as we closed in layers. The deep and subcutaneous fat layers were closed with 0 Vicryl. The subcutaneous tissue was closed with a running 3-0 Vicryl and the skin with sophia. All sponge, needle, blade, and instrument counts were correct prior to closing the wounds. Sterile dressings consisting of Xeroform, 4 x 4's, ABD, and tape were applied. The patient was awoken and transferred to her hospital bed and then to the postanesthesia care unit in stable condition. Postoperative condition: The plan is to return to the medical/surgical inpatient floor postoperatively. Postoperatively 24 hours of IV antibiotics, pain control, physical therapy, occupational therapy, and medical comanagement will be utilized. Patient will be weightbearing as tolerated with anterior hip precautions. Postoperative films will be obtained in the recovery room. Results and Findings: Laboratory Tests 03/09/18 03/11/18 17:58 05:34 WBC 4.5 6.0 D Hgb 13.3 12.3 L Hct 40.9 38.9 Plt Count 191 131 L 03/09/18 17:58 PT 9.8 INR (Anticoag Therapy) 0.98 PTT (Samia) 23.6 L 03/09/18 03/11/18 17:58 05:34 Plasma Sodium 138 136 Potassium 4.3 4.3 Chloride 103 100 Carbon Dioxide 28.6 28.9 BUN 14 9 Creatinine 0.99 0.82 Est GFR (Non-Af Amer) 60 74 D Random Glucose 128 H 191 H D Calcium Adj for Albumin 8.6 Total Bilirubin 0.3 AST 17 ALT 34 Alkaline Phosphatase 92 Total Protein 6.6 Albumin 3.6 03/09/18 Unknown Troponin I Less than 0.017 Discharge Location: [facility] Disposition: SNF Condition: Undetermined Face to Face Encounter completed per [facility] Guidelines: Yes Level of Care: SNF Discharge Activity: Weight bearing - as tolerated; anterior hip precautions. Discharge Diet: Low fat/chol, High Fiber Referrals: Mili Davis MD [Primary Care Provider] - Consultation Done:: Additional Patient Instructions (free text): To [facility] for therapies at discharge. PT and OT to evaluate and treat. yogurt 6 oz twice a day with food. Start ASA 325 mg for 6 weeks after completion of lovenox. Call for appt with and Dr. Davis. Prescriptions (Any new or edited meds): Aspirin 325 mg PO DAILY #42 tablet Bisacodyl [Dulcolax Suppository] 10 mg RC Q48H #10 supp.rect Cholecalciferol [Vitamin D] 2,000 unit PO DAILY@1200 #100 capsule Enoxaparin Sodium [Lovenox] 40 mg SC Q24H #5 disp.syrin HYDROcodone/ACETAMINOPHEN [[place] 5-325] 2 each PO Q6H PRN #60 tablet PRN Reason: Moderate Pain (Pain Scale 4-6) Mag Hydrox/Aluminum Hyd/Simeth [Maalox Plus Suspension] 30 ml PO Q6H PRN #1 bottle PRN Reason: Indigestion Rizatriptan Benzoate [Maxalt Physical Therapy Technician] 10 mg PO DAILY PRN #5 tab.rapdis MDD 30 MG PRN Reason: Migraine Headache Sennosides/Docusate Sodium [Senokot-S] 2 tab PO BID #120 tablet Complete Home Medications List: Complete Home Medication List: Amantadine HCl [Symmetrel] 100 mg PO BID 09/17/17 Rasagiline Mesylate [Azilect] 0.5 mg PO DAILY 09/17/17 Ubidecarenone [Co Q-10] 200 mg PO DAILY 09/17/17 Pramipexole Di-HCl [Mirapex] 0.125 mg PO TID 03/09/18 Aspirin 325 mg PO DAILY #42 tablet 03/15/18 Bisacodyl [Dulcolax Suppository] 10 mg RC Q48H #10 supp.rect 03/15/18 Cholecalciferol [Vitamin D] 2,000 unit PO DAILY@1200 #100 capsule 03/15/18 Enoxaparin Sodium [Lovenox] 40 mg SC Q24H #5 disp.syrin 03/15/18 HYDROcodone/ACETAMINOPHEN [[place] 5-325] 2 each PO Q6H PRN #60 tablet 03/15/18 Mag Hydrox/Aluminum Hyd/Simeth [Maalox Plus Suspension] 30 ml PO Q6H PRN #1 bottle 03/15/18 Rizatriptan Benzoate [Maxalt Physical Therapy Technician] 10 mg PO DAILY PRN #5 tab.rapdis MDD 30 MG Sennosides/Docusate Sodium [Senokot-S] 2 tab PO BID #120 tablet 03/15/18
[2018-03-15 10:56] VITALS: BP 134/62
== END 2018-03-15 10:50 | DRG 470 ==
LOC: ER 16:16 → MS 18:15 → OBSVTOIN 03-10 07:26
PROVIDERS: ADMIT Family Medicine; ATTEND Internal Medicine
DX: Z88.0 Allergy status to penicillin; H20.829 Vogt-Koyanagi syndrome, unspecified eye; W01.0XXA Fall on same level from slipping, tripping and stumbling without subsequent striking against object, initial encounter; Z88.6 Allergy status to analgesic agent; S09.90XA Unspecified injury of head, initial encounter; S72.012A Unspecified intracapsular fracture of left femur, initial encounter for closed fracture; Z88.2 Allergy status to sulfonamides; Y92.009 Unspecified place in unspecified non-institutional (private) residence as the place of occurrence of the external cause; Y92.000 Kitchen of unspecified non-institutional (private) residence as the place of occurrence of the external cause; G20 Parkinson's disease; E78.5 Hyperlipidemia, unspecified
CPT/HCPCS: 36415; 70450; 71010; 71045; 72125; 73502; 73552; 80048; 80053; 84484; 85025; 85027; 85610; 85730; 93005; 96374; 96375; 96376; 97110; 97116; 97161; 97166; 97530; 97535; 99285; G0378